=== PATIENT | male | born 1935 | race Two or more races ===

== ENCOUNTER 2023-08-29 10:39 | Emergency (ER) | payer MEDICARE, OTHER ==
[~2023-08-29] VITALS: Ht 172.7 cm; Wt 58.1 kg
[2023-08-29 13:34] VITALS: BP 125/74; PULSE 90; RESP 16; TEMP 97.4; O2SAT 95
== END 2023-08-29 14:22 | disposition home or self-care (01) ==
LOC: ER 10:39
DX: S63.592A Other specified sprain of left wrist, initial encounter (principal); F03.90 Unspecified dementia, unspecified severity, without behavioral disturbance, psychotic disturbance, mood disturbance, and anxiety; E78.5 Hyperlipidemia, unspecified; Z98.890 Other specified postprocedural states; W18.39XA Other fall on same level, initial encounter; Y93.89 Activity, other specified; Y92.89 Other specified places as the place of occurrence of the external cause; Y99.8 Other external cause status
CPT/HCPCS: 29125; 70450; 73100; 73130

== ENCOUNTER 2025-01-26 13:05 | Emergency (ER) | payer MEDICARE, OTHER ==
[~2025-01-26] VITALS: Ht 172.7 cm; Wt 51.8 kg
--- NOTE | 2025-01-26 13:40 | ECG ---
[facility] Test Date: 2025-01-26 Test Time: 13:39:51 Pat Name: MILADIS SANCHEZ Department: ER Room: Gender: M Provider Service Representative: : 1935 Requested By: CATRACHITO CAMPBELL Order Number: [id number] Reading MD: Bernardo Sanchez Measurements Intervals [place] Rate: 66 P: 55 UT: 178 QRS: 50 QRSD: 101 T: -20 QT: 397 QTc: 416 Interpretive Statements Sinus rhythm Borderline T abnormalities, inferior leads Electronically Signed On 01-28-2025 19:27:04 PDT by Bernardo Sanchez Please click the below link to view image of tracing.
--- NOTE | 2025-01-26 14:06 | ED.PDOC ---
SOB-HPI HPI Comments HPI: Poor Historian. Past Medical History: Past Surgical History: HPI: 89y M who presents to the ED for chief complaint of shortness of breath - pt presents with spouse who states pt has been having shortness of breath for the past 1x week - pt has been having associated non-productive cough, rhinorrhea, and nasal co ngestion - pt presents to the ED on 2 L via nc and 02 sat of 98% with otherwise stable vitals - pt otherwise has no sick contacts at home - pt denies any other symptoms at this time - pt has noted history of Alzheimer disease and is ax0x2 which is baseline Patient has been refusing to use inhaler at home. Past Medical History: Alzheimers disease, COPD, TB, HTN, thyroid disease, VT Past Surgical History: R lobectomy, PTCA Social History: Denies ETOH, smoking, and drug use. Medications: ASA, Allergies: denies REVIEW OF SYSTEMS: CONSTITUTIONAL: Denies acute: fever, diaphoresis, chills, HEAD: Denies acute: headache, photophobia Eyes: Denies acute: Double vision, vision loss, eye pain, eye discharge. EARS: Denies acute: tinnitus, hearing loss, ear discharge, ear pain, THROAT: Denies acute: sore throat, swelling, difficulty swallowing , pain with swall owing, change in voice. NECK: Denies acute: neck pain, neck swelling, stiff neck. HEART: Denies acute : chest pain, palpitations, LUNGS: Denies acute: wheezing, hemoptysis ABDOMEN: Denies acute: abdominal pain, Nausea, Vomiting, diarrhea, melena , hematemesis, hematochezia SKIN: Denies acute: rash, redness, lesions, itchiness. EXTREMITIES: Denies acute: calf pain, numbness, tingling, weakness, denies pain in extremity. Denies acute: Low back pain. Neuro: Denies acute: focal neurological deficit, motor or sensory focal neurological deficit, tremors, seizure like activity, confusion, dizziness, change in mental status, loss of bowel or bladder function, cauda equina like symptoms. : Denies acute: dysuria, hematuria, flank pain, increase in urinary frequency. PSYCH: Denies acute: hallucination, suicidal ideation, homicidal ideation. PHYSICAL EXAM: General: -----no---acute distress, awake and alert. Head: normocephalic, atraumatic. Neck: supple, trachea is midline, no swelling. Throat: Normal phonation. Eyes:, no erythema, no purulent discharge, no proptosis, no icterus. Heart: regular rate, regular rhythm, no significant murmur appreciated. Lungs: no apparent respiratory distress, Able to speak in full sentences. No wheezing, no rhonchi, no crackles. No stridors Clear to auscultation bilaterally. Abdomen: non tender to palpation, non distended, soft, no guarding, no rebound, + bowel sounds. Neuro: Awake, Alert, oriented to name, self, situation, follows commands. At baseline Alzheimer. Speech is normal. Skin: no petechia, no purpura, no cyanosis, non-pale, not jaundice. Lower extremities: --no - Pitting edema no deformity, no focal swelling, no calf TTP. Makes eye contact. moves all four extremities. Face: no apparent facial droop. ED COURSE: DISCLAIMER: This medical document was created using an electronic medical record system with voice recognition software and computerized dictation system. Although this document has been carefully reviewed, there might still be some phonetic and typographical errors. Occasional wrong-word or "sound-alike" substitutions may have occurred due to the inherent limitations of voice recognition software. These areas are purely typographical due to imperfections of the software programs and do not reflect any compromise in the patient's medical care. Please read the chart carefully and recognize, using context, where these substitutions have occurred. Chief Complaint: Shortness of Breath Time Seen by MD: 13:06 Primary Care Provider: Dr. Muniz Reviewed notes: Nurses Notes Information Source: Patient, Spouse Mode of Arrival: Wheelchair Past Medical History PAST MEDICAL HISTORY: Dementia, High Lipids, Thyroid Surgical History: CABG Family History Family History: Reviewed,noncontributory to illness, Unknown Social History Smoker: Non-Smoker Alcohol: Denies ETOH Use Drugs: Denies Drug Use Lives In: Home EKG EKG : Pulse Rate (adult): 66 [place]: Normal Cardiac Rhythm: NSR Block: None Hypertrophy: None ST: Normal Comments T wave inversions in leads II, III and AVF Was a procedure done? Was a procedure done?: No X-Ray, Labs, Meds, VS Vital Signs Date Time Temp Pulse Resp B/P (MAP) Pulse Ox O2 Delivery O2 Flow Rate FiO2 01/26/25 19:26 77 20 96 01/26/25 19:26 98.5 77 20 110/71 (84) 96 98.5 01/26/25 16:21 66 01/26/25 16:10 98.1 92 18 162/88 (112) 96 98.1 01/26/25 16:10 92 18 96 Room Air* 0 21 01/26/25 14:48 18 97 Room Air* 0 21 01/26/25 13:39 66 01/26/25 13:30 97.8 78 18 151/80 (103) 97 97.8 01/26/25 13:30 18 98 Nasal Cannula* 2 28 Lab Test 01/26/25 17:00 01/26/25 16:13 01/26/25 14:51 01/26/25 13:51 Range/Units Troponin I High Sensitivity 7 6 7 </=54 ng/L Urine Color Yellow Yellow Urine Clarity Clear Clear Urine pH 7.0 5.0-9.0 Urine Specific [place] 1.020 1.001-1.035 Urine Protein Negative Negative Urine Ketones Negative Negative Urine Blood Negative Negative /uL Urine Nitrite Negative Negative Urine Bilirubin Negative Negative Urine Urobilinogen 4 H Negative mg/dL Urine Leukocyte Esterase Negative Negative /uL Urine RBC 2 0 - 3 /hpf Urine Microscopic WBC < 1 0-3 /HPF Urine Squamous Epithelial Cells Few <5 /hpf Urine Bacteria None seen None Seen /hpf Urine Mucus Few None Seen Urine Glucose Normal Normal mg/dL Influenza Type A Antigen Negative Negative Influenza Type B Antigen Negative Negative SARS-CoV-2 Antigen (Rapid) Negative NEGATIVE White Blood Count 7.0 4.4-10.8 10^3/uL Red Blood Count 4.53 4.5-5.90 10^6/uL Hemoglobin 13.2 L 13.5-17.5 g/dL Hematocrit 40.7 L 41.0-53.0 % Mean Corpuscular Volume 89.9 80.0-100.0 fL Mean Corpuscular Hemoglobin 29.1 28.0-32.0 pg Mean Corpuscular Hemoglobin Concent 32.3 32.0-36.0 g/dL Red Cell Distribution Width 15.5 H 11.8-14.3 % Platelet Count 192 140-450 10^3/uL Mean Platelet Volume 7.2 6.9-10.8 fL Neutrophils (%) (Auto) 79.8 37.0-80.0 % Lymphocytes (%) (Auto) 11.7 10.0-50.0 % Monocytes (%) (Auto) 6.4 0.0-12.0 % Eosinophils (%) (Auto) 1.4 0.0-7.0 % Basophils (%) (Auto) 0.7 0.0-2.0 % Neutrophils # (Auto) 5.6 1.6-8.6 10 ^3/uL Lymphocytes # (Auto) 0.8 0.4-5.4 10 ^3/uL Monocytes # (Auto) 0.4 0-1.3 10 ^3/uL Eosinophils # (Auto) 0.1 0-0.8 10 ^3/uL Basophils # (Auto) 0 0-0.2 10 ^3/uL Nucleated Red Blood Cells 0.1 % Sodium Level 142 136-145 mmol/L Potassium Level 4.1 3.5-5.1 mmol/L Chloride Level 106 98-107 mmol/L Carbon Dioxide Level 26 20-31 mmol/L Anion Gap 10 5-15 Blood Urea Nitrogen 18 9-23 mg/dL Creatinine 1.03 0.700-1.30 mg/dL Glomerular Filtration Rate Calc 69 >90 mL/min BUN/Creatinine Ratio 17.5 10.0-20.0 Serum Glucose 93 74-106 mg/dL Calcium Level 10.0 8.7-10.4 mg/dL Total Bilirubin 0.7 0.2-1.0 mg/dL Aspartate Amino Transferase (AST) 20 13-40 U/L Alanine Aminotransferase (ALT) 16 7-40 U/L Alkaline Phosphatase 83 46-116 U/L B-Type Natriuretic Peptide 71.25 0-100 pg/mL Total Protein 7.2 5.7-8.2 g/dL Albumin 4.3 3.2-4.8 g/dL Current Medications Medications (Trade) Dose Ordered Sig/Radha Route Start Time Stop Time Status Last Admin Albuterol (Ventolin Medneb) 2.5 mg ONCE ONCE NEB 01/26/25 14:15 01/26/25 14:16 DC 7/12/25 14:44 Ipratropium Ferguson (Atrovent Medneb) 1 mg ONCE ONCE NEB 01/26/25 14:15 01/26/25 14:16 DC 01/26/25 14:45 Methylprednisolone Sodium Succinate (Solu Medrol) 125 mg ONCE ONCE IM 01/26/25 16:15 01/26/25 16:17 DC 01/26/25 16:20 [place] [address] Ph: [phone] DIAGNOSTIC IMAGING Diagnostic Imaging Report : [id number] Signed PATIENT: MILADIS TORRE ACCT: [id number] UNIT: [id number] : 1935 LOC: ER ROOM / BED: / AGE / SEX: 89 / M ADM STATUS: REG ER SERVICE 1316 ORDERING PHYSICIAN: CATRACHITO CAMPBELL DO PROCEDURE(s): CXRP - CHEST PORTABLE REASON: sob ORDER NUMBER(s): [id number], ACCESSION NUMBER(s): [id number] CHEST RADIOGRAPH Indication: sob Technique: Single frontal view of the chest was obtained Comparison: None FINDINGS: Lines and Tubes: None Lungs: Right paramediastinal soft tissue mass with right apical pleural thickening and/or scarring. Compare either previous chest x-ray or CT chest. Pleura: No effusion. No pneumothorax. Cardiomediastinal contours: Unremarkable Bones: No acute osseous abnormality. IMPRESSION: 1. Right paratracheal soft tissue density measuring a proximally 5 cm. Right upper lobe atelectasis or scarring and pleural thickening. Consider comparison with prior study or CT of the chest. ATED BY: VICKEY GOODMAN Jr., DO DICTATED DATE/TIME: 01/26/251452 SIGNED BY: VICKEY GOODMAN Jr., SIGNED DATE/TIME: 01/26/251452 CC: [place] [address] Ph: [phone] DIAGNOSTIC IMAGING Diagnostic Imaging Report : [id number] Signed PATIENT: MILADIS TORRE ACCT: [id number] UNIT: [id number] : 1935 LOC: ER ROOM / BED: / AGE / SEX: 89 / M ADM STATUS: REG ER SERVICE 1636 ORDERING PHYSICIAN: CATRACHITO CAMPBELL DO PROCEDURE(s): CX2CT - CHEST WITHOUT CONTRAST REASON: resp symtpoms, abnormal cxy ORDER NUMBER(s): [id number], ACCESSION NUMBER(s): [id number] Procedure: CT CHEST WITHOUT CONTRAST Reason for study/Clinical History: resp symtpoms, abnormal cxy Comparison Study: Chest x-ray 01/26/2025 Exam Date: 01/26/2025 04:36 PM TECHNIQUE: Multidetector CT of the chest was performed from the lung apices to the upper abdomen without the use of intravenous contract. Axial, coronal and sagittal multiplanar reformats were performed. Radiation Dose Information: CT Dose: CTDI volume is 6.74 mGy. Dose-length product is 281.23 mGy*cm The dose indicators for CT are the volume Computed Tomography (CT) Dose Index (CTDIvol) and the Dose Length Product (DLP), and are measured in units of mGy and mGy-cm, respectively. These indicators are not patient dose, but values generated from the CT scanner acquisition factors. The report includes radiation exposure data for exposures received during this examination. FINDINGS: Lower neck: Normal thyroid. Lungs: Lung nodule in the anterior aspect of the left upper lobe which measures 7 x 6 by 4 mm and has somewhat spiculated margins. Soft tissue density/thickening at the right lung apex with prominent internal bronchie ctasis, consistent with chronic scarring. There is associated volume loss in the right upper lobe with elevation of the major fissure. No discrete obstructing mass is seen. No focal pneumonia. Heart/Vascular Structures: Normal heart size. No pericardial effusion. Heavy coronary artery calcification. Status post CABG. Moderate atherosclerosis of the thoracic aorta. Lymph Nodes: No adenopathy Pleura: No pleural effusion or significant pneumothorax. Musculoskeletal: No acute osseous abnormality. Partial fusion of the right 5th and 6th lateral ribs may be due to prior trauma or congenital. Old left posterior rib fractures. Mild multilevel degenerative changes in the thoracic spine. Soft tissues: Normal. Upper abdomen: Cholelithiasis. Small hiatal hernia. IMPRESSION: No focal pneumonia. Right upper lobe scarring with internal bronchiectasis and associated volume loss. Left upper lobe pulmonary nodule measuring up to 7 mm. Recommend follow-up CT in 6-12 months per Fleischner criteria. Cholelithiasis. Small hiatal hernia. ATED BY: RAY SON DO DICTATED DATE/TIME: 01/26/251735 SIGNED BY: RAY SON DO SIGNED DATE/TIME: 01/26/251735 CC: Patient Education/Counseling: Diagnosis, Treatment Family Education/Counseling: No Family Present SEPSIS Sepsis Screen Date sepsis recognized/suspect: Jan 26, 2025 Time Sepsis recognized/suspect: 1330 Recent Procedure: No On Antibiotic Therapy: No Respiratory Rate >20: No Heart Rate >90: No Temp<36 C (96.8 F) or >38.3 C: No SBP <90 or MAP <65 mmHG: No New Acute Mental Status Change: No Is the patient on CPAP, BIPAP,: No Physician Orders Nuclear Medicine Medical Director (01/26/25 ) Chest Portable (01/26/25 13:16) Chest Without Contrast (01/26/25 16:36) Vital Signs Date Time Temp Pulse Resp B/P (MAP) Pulse Ox O2 Delivery O2 Flow Rate FiO2 01/26/25 19:26 77 20 96 01/26/25 19:26 98.5 77 20 110/71 (84) 96 98.5 01/26/25 16:21 66 01/26/25 16:10 98.1 92 18 162/88 (112) 96 98.1 01/26/25 16:10 92 18 96 Room Air* 0 21 01/26/25 14:48 18 97 Room Air* 0 21 01/26/25 13:39 66 01/26/25 13:30 97.8 78 18 151/80 (103) 97 97.8 01/26/25 13:30 18 98 Nasal Cannula* 2 28 Laboratory Tests Test 01/26/25 13:51 White Blood Count 7.0 10^3/uL (4.4-10.8) Medications Medications Dose Ordered Sig/Radha Route Start Time Stop Time Status Last Admin Dose Admin Albuterol 2.5 mg ONCE ONCE NEB 01/26/25 14:15 01/26/25 14:16 DC 01/26/25 14:44 Ipratropium Ferguson 1 mg ONCE ONCE NEB 01/26/25 14:15 01/26/25 14:16 DC 01/26/25 14:45 Methylprednisolone Sodium Succinate 125 mg ONCE ONCE IM 01/26/25 16:15 01/26/25 16:17 DC 01/26/25 16:20 Departure 1 Departure Time of Disposition: 17:46 Impression: Primary Impression: Bronchitis Disposition: HOME / SELF CARE / HOMELESS Condition: Stable Additional Instructions: Additional instructions: You MUST follow-up with your primary care/family doctor in 1 to 2 days. If you are unable to see your primary care/family doctor, please return to our emergency room for re-assessment and re-evaluation in 1 to 2 days. Return to the emergency room here in our facility or to the nearest ER [facility] if your symptoms change or worsen. CONSULTATIONS: you MUST Follow-up for consultation as soon as possible with: ---- You MUST call the consultants office yourself to make an appointment. You may need to arrange that through your insurance and/or your primary/family doctor. If you are unable to see the consultant in ergonomics and safety in 1 to 2 days, you must return to our emergency room (or any other ER of your choice) for re-assessment and re- evaluation. Adequate fluid hydration. Below is a copy of your radiological report for follow up: [place] [address] Ph: [phone] DIAGNOSTIC IMAGING Diagnostic Imaging Report : [id number] Signed PATIENT: MILADIS TORRE ACCT: [id number] UNIT: [id number] : 1935 LOC: ER ROOM / BED: / AGE / SEX: 89 / M ADM STATUS: REG ER SERVICE 1316 ORDERING PHYSICIAN: CATRACHITO CAMPBELL DO PROCEDURE(s): CXRP - CHEST PORTABLE REASON: sob ORDER NUMBER(s): [id number], ACCESSION NUMBER(s): [id number] CHEST RADIOGRAPH Indication: sob Technique: Single frontal view of the chest was obtained Comparison: None FINDINGS: Lines and Tubes: None Lungs: Right paramediastinal soft tissue mass with right apical pleural thickening and/or scarring. Compare either previous chest x-ray or CT chest. Pleura: No effusion. No pneumothorax. Cardiomediastinal contours: Unremarkable Bones: No acute osseous abnormality. IMPRESSION: 1. Right paratracheal soft tissue density measuring a proximally 5 cm. Right upper lobe atelectasis or scarring and pleural thickening. Consider comparison with prior study or CT of the chest. ATED BY: VICKEY GOODMAN Jr., DO DICTATED DATE/TIME: 01/26/251452 SIGNED BY: VICKEY GOODMAN Jr., SIGNED DATE/TIME: 01/26/251452 CC: [place] [address] Ph: [phone] DIAGNOSTIC IMAGING Diagnostic Imaging Report : [id number] Signed PATIENT: MILADIS TORRE ACCT: [id number] UNIT: [id number] : 1935 LOC: ER ROOM / BED: / AGE / SEX: 89 / M ADM STATUS: REG ER SERVICE 35 ORDERING PHYSICIAN: CATRACHITO CAMPBELL DO PROCEDURE(s): CX2CT - CHEST WITHOUT CONTRAST REASON: resp symtpoms, abnormal cxy ORDER NUMBER(s): [id number], ACCESSION NUMBER(s): [id number] Procedure: CT CHEST WITHOUT CONTRAST Reason for study/Clinical History: resp symtpoms, abnormal cxy Comparison Study: Chest x-ray 01/26/2025 Exam Date: 01/26/2025 04:36 PM TECHNIQUE: Multidetector CT of the chest was performed from the lung apices to the upper abdomen without the use of intravenous contract. Axial, coronal and sagittal multiplanar reformats were performed. Radiation Dose Information: CT Dose: CTDI volume is 6.74 mGy. Dose-length product is 281.23 mGy*cm The dose indicators for CT are the volume Computed Tomography (CT) Dose Index (CTDIvol) and the Dose Length Product (DLP), and are measured in units of mGy and mGy-cm, respectively. These indicators are not patient dose, but values generated from the CT scanner acquisition factors. The report includes radiation exposure data for exposures received during this examination. FINDINGS: Lower neck: Normal thyroid. Lungs: Lung nodule in the anterior aspect of the left upper lobe which measures 7 x 6 by 4 mm and has somewhat spiculated margins. Soft tissue density/thickening at the right lung apex with prominent internal bronchiectasis, consistent with chronic scarring. There is associated volume loss in the right upper lobe with elevation of the major fissure. No discrete obstructing mass is seen. No focal pneumonia. Heart/Vascular Structures: Normal heart size. No pericardial effusion. Heavy coronary artery calcification. Status post CABG. Moderate atherosclerosis of the thoracic aorta. Lymph Nodes: No adenopathy Pleura: No pleural effusion or significant pneumothorax. Musculoskeletal: No acute osseous abnormality. Partial fusion of the right 5th and 6th lateral ribs may be due to prior trauma or congenital. Old left posterior rib fractures. Mild multilevel degenerative changes in the thoracic spine. Soft tissues: Normal. Upper abdomen: Cholelithiasis. Small hiatal hernia. IMPRESSION: No focal pneumonia. Right upper lobe scarring with internal bronchiectasis and associated volume loss. Left upper lobe pulmonary nodule measuring up to 7 mm. Recommend follow-up CT in 6-12 months per Fleischner criteria. Cholelithiasis. Small hiatal hernia. ATED BY: RAY SON DO DICTATED DATE/TIME: 01/26/251735 SIGNED BY: RAY SON DO SIGNED DATE/TIME: 01/26/251735 CC: e-Prescriptions Azithromycin (Zithromax Tri-Joshua) 500 Mg Tab 500 MG PO DAILY for 5 Days, #5 TAB Prov: CATRACHITO CAMPBELL DO 01/26/25 Discharged With: Self Critical Care Note Critical Care Time?: No Heart Score Heart Score: Heart Score Response (Comments) Value History Moderate Suspicious 1 EKG Repolarization Disturb 1 Age >65 2 Risk Factors 1 or 2 risk factors 1 Troponin Normal limit 0 Total 5 I personally scribed for CATRACHITO CAMPBELL DO ([email or web address]) on 01/26/25 at 14:06. Electronically submitted by Everton Peña ([employer]). I personally scribed for CATRACHITO CAMPBELL DO (ETHAN) on 01/26/25 at 16:21. Electronically submitted by Everton Peña ([employer]). I personally scribed for CATRACHITO CAMPBELL DO ([facility] on 01/26/25 at 17:49. Electronically submitted by Everton Peña ([facility]). I personally scribed for CATRACHITO CAMPBELL DO ([facility]) on 01/26/25 at 21:45. Electronically submitted by Everton Peña ([facility]). CATRACHITO CAMPBELL DO Jan 26, 2025 14:06
[2025-01-26 14:14] LABS: Hematocrit 40.7 % (41.0-53.0); Hemoglobin 13.2 g/dL (13.5-17.5); Mean Corpuscular Hemoglobin 29.1 pg (28.0-32.0); Mean Corpuscular Volume 89.9 fL (80.0-100.0); Nucleated Red Blood Cells % 0.1 %
[2025-01-26] MEDS ORDERED: methylPREDNISolone SOD SUCC 125 MG/2 ML VL IV ONE (14:15)
[2025-01-26 14:30] LABS: Alanine Aminotransferase 16 U/L (7-40); Albumin 4.3 g/dL (3.2-4.8); Alkaline Phosphatase 83 U/L (46-116); Anion Gap 10 (5-15); BUN/Creatinine Ratio 17.5 (10.0-20.0); Blood Urea Nitrogen 18 mg/dL (9-23); Calcium 10.0 mg/dL (8.7-10.4); Carbon Dioxide 26 mmol/L (20-31); Chloride 106 mmol/L (98-107); Glucose 93 mg/dL (74-106); Potassium 4.1 mmol/L (3.5-5.1); Sodium 142 mmol/L (136-145); Total Protein 7.2 g/dL (5.7-8.2)
[2025-01-26 14:31] LABS: Bilirubin, Total 0.7 mg/dL (0.2-1.0)
[2025-01-26] MEDS: ALBUTEROL SULF 2.5 MG/0.5ML(0.5%) NEB SOLN NEB ONE (14:44)
[2025-01-26] MEDS: IPRATROPIUM BROM 0.5 MG/2.5ML INH SOL NEB ONE (14:45)
--- NOTE | 2025-01-26 14:56 | DVH ---
CHEST RADIOGRAPH Indication: sob Technique: Single frontal view of the chest was obtained Comparison: None FINDINGS: Lines and Tubes: None Lungs: Right paramediastinal soft tissue mass with right apical pleural thickening and/or scarring. C ompare either previous chest x-ray or CT chest. Pleura: No effusion. No pneumothorax. Cardiomediastinal contours: Unremarkable Bones: No acute osseous abnormality. IMPRESSION: 1. Right paratracheal soft tissue density measuring a proximally 5 cm. Right upper lobe atelectasis o r scarring and pleural thickening. Consider comparison with prior study or CT of the chest.
[2025-01-26 16:10] VITALS: PULSE 92; RESP 18; O2SAT 96
[2025-01-26] MEDS: methylPREDNISolone SOD SUCC 125 MG/2 ML VL IM ONE (16:20)
[2025-01-26 16:47] LABS: Urine Protein, UAD Negative (Negative)
[2025-01-26 17:00] LABS: COVID19 ANTIGEN SOFIA FIA NEGATIVE (NEGATIVE)
--- NOTE | 2025-01-26 17:38 | DVH ---
Procedure: CT CHEST WITHOUT CONTRAST Reason for study/Clinical History: resp symtpoms, abnormal cxy Comparison Study: Chest x-ray 01/26/2025 Exam Date: 01/26/2025 04:36 PM TECHNIQUE: Multidetector CT of the chest was performed from the lung apices to the upper abdomen with out the use of intravenous contract. Axial, coronal and sagittal multiplanar reformats were performed . Radiation Dose Information: CT Dose: CTDI volume is 6.74 mGy. Dose-length product is 281.23 mGy*cm The dose indicators for CT are the volume Computed Tomography (CT) Dose Index (CTDIvol) and the Dose Length Product (DLP), and are measured in units of mGy and mGy-cm, respectively. These indicators are not patient dose, but values generated from the CT scanner acquisition factors. The report includes radiation exposure data for exposures received during this examination. FINDINGS: Lower neck: Normal thyroid. Lungs: Lung nodule in the anterior aspect of the left upper lobe which measures 7 x 6 by 4 mm and has somewhat spiculated margins. Soft tissue density/thickening at the right lung apex with prominent in ternal bronchiectasis, consistent with chronic scarring. There is associated volume loss in the right upper lobe with elevation of the major fissure. No discrete obstructing mass is seen. No focal pneum onia. Heart/Vascular Structures: Normal heart size. No pericardial effusion. Heavy coronary artery calcific ation. Status post CABG. Moderate atherosclerosis of the thoracic aorta. Lymph Nodes: No adenopathy Pleura: No pleural effusion or significant pneumothorax. Musculoskeletal: No acute osseous abnormality. Partial fusion of the right 5th and 6th lateral ribs m ay be due to prior trauma or congenital. Old left posterior rib fractures. Mild multilevel degenerati ve changes in the thoracic spine. Soft tissues: Normal. Upper abdomen: Cholelithiasis. Small hiatal hernia. IMPRESSION: No focal pneumonia. Right upper lobe scarring with internal bronchiectasis and associated volume loss. Left upper lobe pulmonary nodule measuring up to 7 mm. Recommend follow-up CT in 6-12 months per [place] criteria. Cholelithiasis. Small hiatal hernia.
[2025-01-26] MEDS ORDERED: AZITTAB2 PO (17:48)
[2025-01-26 19:26] VITALS: BP 110/71; PULSE 77; RESP 20; TEMP 98.5; O2SAT 96
== END 2025-01-26 19:31 | disposition home or self-care (01) ==
LOC: ER 13:05
DX: J40 Bronchitis, not specified as acute or chronic (principal); I10 Essential (primary) hypertension; E03.9 Hypothyroidism, unspecified; E78.5 Hyperlipidemia, unspecified; F03.90 Unspecified dementia, unspecified severity, without behavioral disturbance, psychotic disturbance, mood disturbance, and anxiety; Z20.822 Contact with and (suspected) exposure to COVID-19; Z95.1 Presence of aortocoronary bypass graft
CPT/HCPCS: 36415; 71045; 71250; 80053; 81001; 83880; 84484; 85025; 87426; 87804; 93005; 94640; 96372; 99285; J2919